=== PATIENT | male | born 1985 | race Two or more races ===

== ENCOUNTER 2017-04-01 05:24 | Emergency (ER) | payer OTHER ==
[~2017-04-01] VITALS: Ht 165.1 cm; Wt 65.8 kg
--- NOTE | 2017-04-01 05:24 | NUR ---
pt to er bb [facility] from [facility] for chestpain. no immediate signs of distress noted. pt vital signs stable. skin warm and dry. no respiratory distress noted. pt to er bed, changed into gown and connected to monitor. dr pérez at bedside for exam.
--- NOTE | 2017-04-01 09:46 | NUR ---
OK TO BOOK PER DR MONTIEL. Patient discharged to [facility] in stable condition. Written and verbal after care instructions given. Patient verbalizes understanding of instruction. [employer] AT BEDSIDE FOR TRANSPORT.
[2017-04-01 09:49] VITALS: BP 135/71
== END 2017-04-01 09:51 ==
LOC: ER 05:38
DX: S22.31XA Fracture of one rib, right side, initial encounter for closed fracture (principal); S82.831A Other fracture of upper and lower end of right fibula, initial encounter for closed fracture; S00.83XA Contusion of other part of head, initial encounter; Y04.0XXA Assault by unarmed brawl or fight, initial encounter; Y93.89 Activity, other specified; Y92.89 Other specified places as the place of occurrence of the external cause; Y99.9 Unspecified external cause status
CPT/HCPCS: 29515; 70486; 71010; 73610; 93005; 99284; A4606; Z7610

== ENCOUNTER 2017-06-22 20:04 | Emergency (ER) | payer MEDICAID, OTHER ==
[~2017-06-22] VITALS: Ht 165.1 cm; Wt 63.5 kg
--- NOTE | 2017-06-22 20:05 | NUR ---
32 YO MALE BB MOTHER. PATIENT IS A/O X 3, STATES HE HAS BEEN HEAVY DRINKING X 10 DAYS. PATIENT AMBULATED TO ER BED, SKIN WARM AND DRY, RESP EVEN AND UNLABORED. PATIENT PLACED ON TICKER WIRER, AWAITING ORDERS FROM PROVIDER, WILL CONTINUE TO MONITOR
[2017-06-22] MEDS ORDERED: HALOPERIDOL LACTATE INJ 5 MG/ML VIAL ONE (20:45)
[2017-06-22] MEDS ORDERED: HALOPERIDOL LACTATE INJ 5 MG/ML VIAL IM ONE (21:00)
--- NOTE | 2017-06-22 23:17 | NUR ---
PATIENT IS RESTING IN ER BED, NO DISTRESS NOTED, SKIN WARM AND DRY. PATIENT IS ON MONITOR. VITAL SIGNS UPDATED.
--- NOTE | 2017-06-23 02:04 | NUR ---
PATIENT IS RESTING IN ER BED, NO DISTRESS NOTED, SKIN WARM AND DRY. PATIENT IS ON MONITOR. VITAL SIGNS UPDATED.
--- NOTE | 2017-06-23 06:05 | NUR ---
PT OK TO DISCHARGE PER DR ROBLEOR. Patient discharged to home in stable condition. Written and verbal after care instructions given. Patient verbalizes understanding of instruction.Patient is awake and alert to self, day, and place. PT ambulatory with a steady gait
[2017-06-23 07:07] VITALS: BP 115/64
== END 2017-06-23 07:08 | disposition home or self-care (01) ==
LOC: ER 20:06
DX: F10.129 Alcohol abuse with intoxication, unspecified (principal); R45.1 Restlessness and agitation
CPT/HCPCS: 96372; 99283; A4606; J1630 ×2; Z7610